=== PATIENT | male | born 1980 | race Caucasian/White ===

== ENCOUNTER 2024-05-25 02:26 | Emergency (ER) | payer SELFPAY ==
[2024-05-25 02:36] VITALS: BMI 32.9
[2024-05-25 02:41] VITALS: BP 210/106; BP 210/118; PULSE 73; RESP 20; TEMP 36.7; O2SAT 96
--- NOTE | 2024-05-25 02:46 | PD.EDRME ---
Rapid Medical Screening Exam RME Arrival date/time: 05/25/24 02:26 43 year old male present to ED for c/o medical clearance. I have greeted and performed a focused initial assessment of this patient. A comprehensive ED assessment and evaluation of the patient, analysis of all test results, and completion of the medical decision making process will be conducted by additional ED providers. Chief Complaint: Medical Clearance Time Seen by Provider: 05/25/24 02:41 Vital signs: Vital Signs Temperature 98.0 F 05/25/24 02:41 Pulse Rate 73 05/25/24 02:41 Respiratory Rate 20 05/25/24 02:41 Blood Pressure 210/106 H 05/25/24 02:41 Pulse Oximetry (%) 96 05/25/24 02:41 Oxygen Delivery Method Room Air 05/25/24 02:41
[2024-05-25 03:07] VITALS: BP 210/106; PULSE 73
[2024-05-25 03:41] VITALS: BP 196/78; PULSE 73
[2024-05-25] MEDS: Lisinopril 2.5 MG TABLET 10 MG PO (03:41)
[2024-05-25 04:35] VITALS: BP 210/121
--- NOTE | 2024-05-25 05:00 | PC.NURSE ---
PT CITED OUT BY [facility] AND PATIENT ELOPED
== END 2024-05-25 05:00 | disposition left against medical advice (07) ==
LOC: SERX 03:18
PROVIDERS: Emergency Provider Emergency Medicine
DX: Z76.89 Persons encountering health services in other specified circumstances (principal); Z53.29 Procedure and treatment not carried out because of patient's decision for other reasons
CPT/HCPCS: 99281; A9270